=== PATIENT | male | born 1995 | race African-American/Black ===

== ENCOUNTER 2022-10-02 22:14 | Emergency (ER) | payer BC, SELFPAY ==
[2022-10-02 22:16] VITALS: BP 123/014; PULSE 111; RESP 16; TEMP 35.7; O2SAT 100; BMI 16.9
--- NOTE | 2022-10-02 22:36 | EDS_ITS ---
HPI History of Present Illness Chief Complaint: Lower Extremity Injury Narrative Narrative: 27-year-old male presenting with bilateral lower extremity cramping/sharp pains. He states he has been ongoing for months now. Patient took a job at [employer]. He reports a history of type 2 diabetes. He states he previously was over 200 pounds but lost 50 pounds. He reports that the metformin that he used to be on was causing his weight loss he has not taken it. He is able to eat and drink but does state he has a decreased p.o. in the. He denies polyphasia, polyuria, polydipsia. He denies any trauma to the lower extremities. His lower extremities are numb. He does have tingling from time to time and sharp pain from time to time. He states it is worse at night he cannot sleep. He saw the urgent care recently who told him that he was neurovascularly intact and they thought maybe he had low iron and low potassium and gave him some muscle relaxers and told him to eat bananas. Patient was told that if he does not improve his symptoms he should return to the emergency room. He has a primary care physician in [place] where he is from which is 2 [place] 45 minutes away. He has not established with a new physician here. He has a follow-up scheduled in a couple of weeks in [place]. He prefers to keep this at home physician. [facility] Medical History (Updated 10/02/22 @ 23:43 by Elvira Gresham) Diabetes Home Medications blood sugar diagnostic (Accu-Chek Ellen Plus test strips) #50 ea 10/03/22 [Rx Last Taken Unknown] blood-glucose meter (Accu-Chek Ellen Plus Meter) #1 ea 10/03/22 [Rx Last Taken Unknown] gabapentin 300 mg tablet,extended release 24 hr 300 mg PO QPM #30 tabs 10/03/22 [Rx Last Taken Unknown] glipizide 5 mg tablet 5 mg PO DAILY #30 tabs 10/03/22 [Rx Last Taken Unknown] lancets #100 ea 10/03/22 [Rx Last Taken Unknown] metformin 500 mg tablet 500 mg PO BID #60 tabs 10/03/22 [Rx Last Taken Unknown] Allergy/AdvReac Type Severity Reaction Status Date / Time No Known Allergies Allergy Verified 10/02/22 22:15 Social History Smoking Status: Never smoker ROS ROS ED Constitutional Constitutional ED: Denies chills or fever(s) Eyes Eyes: Denies change in vision or diplopia ENT ENT ED: Denies rhinorrhea or sore throat Cardiovascular Cardiovascular: Denies chest pain or palpitations Respiratory/Chest Respiratory/Chest: Denies cough or dyspnea Gastrointestinal Gastrointestinal: Denies abdominal pain or constipation Genitourinary Genitourinary ED: Denies dysuria or hematuria Musculoskeletal Musculoskeletal: Reports other Details: Leg pains ; Denies arthralgias Neurologic Neurologic: Denies headache(s) Psychiatric Psychiatric: Denies anxiety or depression Endocrine Endocrinology: Reports cold intolerance EXAM Physical Exam Const Vital Signs: 10/02/22 22:16 10/03/22 04:07 Temperature 96.3 F L Temperature Source Temporal Pulse Rate 111 H 95 Respiratory Rate 16 16 Blood Pressure 123/014 H 103/62 Blood Pressure Mean 50 75 Pulse Ox 100 100 Oxygen Delivery Method Room Air Room Air Positive well nourished General Appearance ED: NAD; Negative for pallor HEENT Reports moist mucous membranes Negative for trauma Eyes PERRL and EOMs intact bilaterally General Eye ED: Negative for pale conjunctiva Resp normal respiratory effort Auscultation: Negative for rales, rhonchi or wheezes Cardio regular rate and regular rhythm Extremity normal to inspection, full ROM, normal capillary refill and no pedal edema General Extremety ED: Negative for deformity or edema General Extremity: Negative for deformity or edema Neuro oriented x3 Sensorium / Orientation: alert Psych mental status grossly normal Skin no rashes or lesions noted General Skin Exam: Negative for jaundice or pallor MDM MDM MDM Narrative Medical decision making narrative: Patient presenting with bilateral lower extremity pain. Neurovascular intact bilaterally. Brisk cap refill to all 5 toes. Plantarflexion dorsiflexion 5/5 strength. Calves are soft nontender. No cords palpated. Compartments are soft. No skin rashes. Patient relates a history of type 2 diabetes and states that he was able to get off of it at one time I asked without referred to when he stated that he was able to come off his metformin because he was doing so well. He does state that he lost a lot of pounds and thinks it is about 50 pounds from being on the metformin. He has not gained the weight back. He does not have polyuria, polydipsia, polyphagia he states he actually has decreased appetite but is able to eat and drink. I suspect that he has neuropathic pain in his legs. He request something for this pain however he has not done blood work in some time and after some discussion we determined we would check some basic lab work. CBC was used to assess white blood cell count, hemoglobin, platelets, differential. BMP to assess renal function, electrolytes, glucose, anion gap. I did also order hemoglobin A1c, magnesium, TSH. CBC shows a normal white blood cell count 4.5. Hemoglobin 14.8, platelets 309. BMP shows a glucose of 633 without anion gap. He does have pseudohyponatremia with a serum 127. Potassium normal 3.7 chloride slightly low at 91. Anion gap normal at 6. Creatinine normal 1.04. Hemoglobin A1c came back at 12.2. He initially told me that his blood sugar has been about 112 and has been checking it however this would calculate out to at least 300 daily given his A1c. His magnesium was normal at 1.9 his TSH was normal at 1.57. Patient is given 2 L of normal saline. He was given a gabapentin 300 mg for his legs. After IV fluids were given I will recheck his blood sugar and try to get his blood sugar under better control with insulin. He states to me that he used to be on metformin 500 daily. I think he will need to go back on this. After his 2 L the patient's blood sugar was in the 380s. He is given 10 units of insulin and he is down to 350 after 30 minutes. He will be restarted on metformin 500 mg p.o. twice daily. He is also started on glipizide 5 mg p.o. daily. He was given gabapentin for his neuropathy. I recommended highly that he follow-up with his primary care physician in [place] sooner rather than later. Return precautions were discussed. I did write him for glucometer, lancets, test strips. He is to keep a diary of his blood sugars. He was given information on diabetic diet. Discharged home in stable condition. Impression: 1. Diabetic hyperglycemia 2. Medical noncompliance 3. Peripheral neuropathy Lab Data Labs: Laboratory Results - last 24 hr 10/02/22 10/02/22 10/02/22 23:35 23:35 23:35 WBC 4.5 RBC 5.51 Hgb 14.8 Hct 42.4 MCV 77.0 L MCH 26.9 L MCHC 34.9 RDW Std Deviation 30.8 L RDW Coeff of Jasmina 11.1 L Plt Count 309 MPV 9.5 Immature Gran % (Auto) 0.400 Neut % (Auto) 42.7 L Lymph % (Auto) 43.8 H [place] % (Auto) 7.1 Eos % (Auto) 5.1 H Baso % (Auto) 0.9 Absolute Neuts (auto) 1.9 L Absolute Lymphs (auto) 1.97 Nucleated RBC % 0 Sodium 127 L Potassium 3.7 Chloride 91 L Carbon Dioxide 30.0 Anion Gap 6 BUN 11 Creatinine 1.04 Estim Creat Clear Calc 87.05 Est GFR (MDRD) Af Amer 109 Est GFR (MDRD) Non-Af 90 BUN/Creatinine Ratio 10.6 Glucose 633 H* Hemoglobin A1c 12.2 H Calcium 10.0 Magnesium 1.9 TSH 1.57 Acetone Level POC Glucose 10/03/22 10/03/22 00:49 02:52 WBC RBC Hgb Hct MCV MCH MCHC RDW Std Deviation RDW Coeff of Jasmina Plt Count MPV Immature Gran % (Auto) Neut % (Auto) Lymph % (Auto) [place] % (Auto) Eos % (Auto) Baso % (Auto) Absolute Neuts (auto) Absolute Lymphs (auto) Nucleated RBC % Sodium Potassium Chloride Carbon Dioxide Anion Gap BUN Creatinine Estim Creat Clear Calc Est GFR (MDRD) Af Amer Est GFR (MDRD) Non-Af BUN/Creatinine Ratio Glucose Hemoglobin A1c Calcium Magnesium TSH Acetone Level NEGATIVE POC Glucose 382 H Discharge Plan Triage Chief Complaint: Lower Extremity Injury ED Provider: See Suarez Dx/Rx/DC Orders Instructions: ED Diabetic Hyperglycemia, ED Neuropathy, Peripheral, ED Diet: Diabetes Prescriptions: New (DME) blood-glucose meter [Accu-Chek Ellen Plus Meter] Misc See Rx Instructions .Route Qty: 1 0RF Rx Instructions: As directed (DME) Accu-Chek Ellen Plus test strp Strip See Rx Instructions .Route Qty: 50 0RF Rx Instructions: As directed (DME) lancets Misc See Rx Instructions .Route Qty: 100 0RF Rx Instructions: As directed glipizide 5 mg tablet 5 mg PO DAILY Qty: 30 0RF metformin 500 mg tablet 500 mg PO BID Qty: 60 0RF gabapentin 300 mg tablet extended release 24 hr 300 mg PO QPM Qty: 30 0RF Primary Care Provider: CATIE DRAKE Referrals: CATIE DRAKE [Other] Disposition Disposition: Home, Self Care
[2022-10-02 23:49] LABS: Absolute Lymphocyte Count 1.97 X10^3/uL (0.83-4.51); Absolute Neutrophil Count 1.9 X10^3/uL (2.0-7.7); Basophil# 0.04 X10^3/uL; Basophil% 0.9 % (0-1); Eosinophil# 0.23 X10^3/uL; Eosinophils% 5.1 % (0-5); Hematocrit 42.4 % (40-54); Hemoglobin 14.8 g/dL (13.0-16.5); Lymphocyte # 1.97 X10^3/ul (0.83-4.51); Lymphocyte % 43.8 % (19-41); Mean Corp Hgb Conc 34.9 g/dL (32-36); Mean Corpuscular Hgb 26.9 pg (27.0-32.0); Mean Platelet Vol. 9.5 fl (6.2-12.0); Monocyte# 0.32 X10^3/uL; Monocyte% 7.1 % (0-10); NRBC Flagged by Analyzer 0 % (0-5); Neutrophil # 1.92 X10^3/uL (2.7-7.7); Neutrophil % 42.7 % (47-70); Platelet Count 309 K/mm3 (150-450); RBC Distribution Width CV 11.1 % (11.6-14.6); RBC Distribution Width SD 30.8 fl (35.1-43.9); Red Blood Count 5.51 M/mm3 (4.6-6.2); White Blood Count 4.5 K/mm3 (4.4-11.0)
[2022-10-03 00:09] LABS: Hemoglobin A1c 12.2 % (3.8-5.6)
[2022-10-03 00:25] LABS: Anion Gap 6 (5-15); BUN 11 mg/dL (7-18); BUN/Creat Ratio 10.6 RATIO (10-20); Chloride 91 mmol/L (98-107); Creatinine, Serum 1.04 mg/dL (0.70-1.30); EST Glomerular Filtration Rate 90 mL/min (>60); Est Glom Filt Rate - Afr Amer 109 mL/min (>60); Estimated Creatinine Clearance 87.05 ml/min; Glucose 633 mg/dL (74-106); Magnesium 1.9 mg/dL (1.6-2.6); Potassium 3.7 mmol/L (3.5-5.1); Sodium Level 127 mmol/L (136-145); Thyroid Stim Hormone (TSH) 1.57 uIU/mL (0.358-3.74)
[2022-10-03] MEDS: 0.9% Normal Saline 1,000 ML 999 ML IV ×2 (00:47→00:57)
[2022-10-03] MEDS: Gabapentin 300 MG Capsule PO (00:57)
[2022-10-03 03:11] LABS: Bedside Glucose 382 mg/dL (74-106)
[2022-10-03] MEDS: glipiZIDE 2.5 MG TAB.ER.24 5 MG PO (03:38)
[2022-10-03] MEDS: metFORMIN HCl 500 MG Tablet PO (03:38)
[2022-10-03 04:07] VITALS: BP 103/62; PULSE 95; RESP 16; O2SAT 100
[2022-10-03 04:31] LABS: Bedside Glucose 353 mg/dL (74-106)
--- NOTE | 2022-10-04 20:06 | ED.RN ---
[facility] called to check prescription for patient at this time
== END 2022-10-03 04:51 | disposition home or self-care (01) ==
PROVIDERS: Emergency Provider Student in an Organized Health Care Education/Training Program; Visit Provider Student in an Organized Health Care Education/Training Program
DX: E11.65 Type 2 diabetes mellitus with hyperglycemia (principal); E11.42 Type 2 diabetes mellitus with diabetic polyneuropathy; M79.605 Pain in left leg; Z91.199 Patient's noncompliance with other medical treatment and regimen due to unspecified reason; Z79.84 Long term (current) use of oral hypoglycemic drugs; M79.604 Pain in right leg
CPT/HCPCS: 80048; 82009; 82962; 83036; 83735; 84443; 85025; 99283; J7030; A4216